=== PATIENT | male | born 2000 | race Caucasian/White ===

== ENCOUNTER 2023-02-21 20:36 | Emergency (ER) | payer SELFPAY ==
[~2023-02-21] VITALS: Ht 162.6 cm; Wt 65.9 kg
[2023-02-21 20:39] VITALS: BP 126/73
[2023-02-21] MEDS ORDERED: DiphenhydrAMINE HCL 25 MG CAPSULE PO ONE (21:30)
[2023-02-21] MEDS ORDERED: ACETAMINOPHEN 500 MG TABLET PO ONE (21:30)
[2023-02-21] MEDS ORDERED: ACET-66 PO (21:32)
[2023-02-21] MEDS ORDERED: DIPH50CA37 PO (21:32)
== END 2023-02-21 22:05 | disposition home or self-care (01) ==
LOC: EDUNIT# 20:36 → EMS 20:37
DX: T78.40XA Allergy, unspecified, initial encounter (principal); F12.90 Cannabis use, unspecified, uncomplicated; X58.XXXA Exposure to other specified factors, initial encounter
CPT/HCPCS: 99283